=== PATIENT | female | born 1965 | race Caucasian/White ===

== ENCOUNTER 2019-08-03 23:36 | Inpatient (IN) | payer MEDICAID ==
[~2019-08-03] VITALS: Ht 175.3 cm; Wt 65.9 kg
[2019-08-03 23:45] VITALS: BP 104/70
[2019-08-03] MEDS ORDERED: PRINIVIL20 MG PO (23:55)
[2019-08-04] VITALS: BP 103/72
[2019-08-04 00:45] VITALS: BP 96/70
[2019-08-04 01:45] VITALS: BP 102/66
[2019-08-04 03:27] VITALS: BMI 21.4
--- NOTE | 2019-08-04 07:37 | NUR ---
ASSESSMENT DONE. DENIES NEEDS
[2019-08-04 08:25] LABS: BASOPHILS 0.2 % (0-2); EOSINOPHILS 2.3 % (0-7); HEMOGLOBIN 14.5 g/dL (12-16); IMMATURE GRANULOCYTES 0.2 % (0-5); LYMPHOCYTES 24.9 % (15-50); MCH 33.3 pg (26.0-34.0); MCV 101.1 fL (80.0-100.0); MEAN PLATELET VOLUME 10.3 fL (7.4-10.4); MONOCYTES 7.8 % (2-11); NEUTROPHILS 64.6 % (40-80); PLATELET COUNT 167 10x3/uL (130-400); RBC 4.35 10x6/uL (4.00-5.40); RDW 12.9 % (11.5-14.5); WBC 5.7 10x3/uL (4.8-10.8)
[2019-08-04 08:49] LABS: CALC OSMOLALITY 279 mosm/kg (275-300); CALCIUM 9.2 mg/dL (8.5-10.1); CARBON DIOXIDE 27.8 mmol/L (21.0-32.0); CHLORIDE - SERUM 105 mmol/L (98-107); CKMB 1.3 U/L (0.0-3.6); CREATINE KINASE 131 UL (21-215); CREATININE - SERUM 0.8 mg/dL (0.6-1.3); GLUCOSE 97 mg/dL (74-106); MAGNESIUM - SERUM 2.1 mg/dL (1.8-2.4); PHOSPHOROUS 3.8 mg/dL (2.5-4.9); POTASSIUM - SERUM 3.8 mmol/L (3.5-5.1); SODIUM 141 mmol/L (136-145); TROPONIN-I 0.058 ng/mL (0.000-0.060); UREA NITROGEN 10 mg/dL (7-18); eGFR NON AFRICAN AMERICAN 79 mL/min (90-120)
[2019-08-04 09:32] VITALS: BP 155/93
--- NOTE | 2019-08-04 10:06 | NUR ---
I have reviewed this patient and I concur with the Shift Assessment completed by the Licensed Practical Nurse today this shift.
[2019-08-04 13:39] VITALS: BP 154/94
[2019-08-04 15:04] LABS: CREATINE KINASE 115 UL (21-215); TROPONIN-I 0.017 ng/mL (0.000-0.060)
[2019-08-04 15:49] VITALS: Ht 175.3 cm; Wt 65.9 kg
[2019-08-04 16:00] VITALS: BP 156/104
--- NOTE | 2019-08-04 16:46 | NUR ---
WITHOUT CHANGES OR DISTRESS NOTED AT THIS TIME. DENIES NEEDS
--- NOTE | 2019-08-04 18:33 | NUR ---
DC GIVEN TO PT
--- NOTE | 2019-08-04 19:00 | NUR ---
REPORT RECEIVED, WILL CONTINUE POC. PATIENT IS AAOX4, SITTING UP AT BEDSIDE. NO S/S OF DISTRESS OBSERVED, RR EVEN AND UNLABORED ON ROOM AIR. PATIENT IS PREPARING FOR DC. IV OUT, BELONGINGS PACKED. JUST AWAITING TRANSPORTATION.
--- NOTE | 2019-08-07 08:56 | EC ---
PATIENT:CHAN MILLER DATE OF SERVICE: 08/04/19 SEX: F MEDICAL RECORD: [id number] DATE OF : 63 LOCATION:D.M2 D.212 AGE OF PATIENT: 53 ADMISSION DATE: 08/04/19 REFERRING PHYSICIAN: INTERPRETING PHYSICIAN: BRAVO CAGE MD ECHOCARDIOGRAM REPORT ECHO CHARGES 4 ECHO COMPLETE Date: 08/04/19 CLINICAL DIAGNOSIS: SYNCOPE, ELEVATED TROPONIN ECHOCARDIOGRAPHIC MEASUREMENTS (adult normal given) AC root (d.<3.7cm) 2.7 cm LV Septum d (<1.2 cm> 1.0 cm Valve Excursion 1.8 cm LV Septum (systole) 1.5 cm Left Atria (s.<4.0cm> 2.8 cm LVPW d(<1.2cm) 1.2 cm RV (d.<2.3cm) 2.7 cm LVPW (sytole) 1.3 cm LV diastole(<5.6CM) 5.0 cm MV E-F(>70mm/sec) cm LV systole 3.8 cm LVOT Diameter 1.6 cm MV exc.(>10mm) cm Est.ejection fraction (50-75%) % DOPPLER: LVIT cm/sec A 71 cm/sec E 56 cm/sec LA cm/sec RVSP 23.9 mmHg LVOT 92 cm/sec AOP1/2T m/s Asc. Ao 114 cm/sec RVOT 45 cm/sec RA cm/sec PA 69 cm/sec AV Gradient Peak 5.2 mmHg AV Mean 2.6 mmHg AV Area 1.6 cm MV Gradient Peak 4.6 mmHg MV Mean 1.5 mmHg MV Area cm COMMENTS: Insulation Mechanic: Olesya RODRIGUEZ Pony Ride Operator: 3 Dr. Silver TAPE# PACS Pericardial Effusion N DATE OF SERVICE: Adequate 2D, color flow imaging, spectral Doppler, and M-Mode. No LVH. LV internal dimension is normal. Wall motion is normal. EF is greater than or equal to 55%. Aortic valve is tricuspid. No evidence of stenosis by Doppler interrogation. Left atrium normal at 2.8 cm. Mitral valve shows no prolapse. Trace MR. Right-sided chambers are grossly normal. Trace TR. TRANSINT:[id number] Voice Confirmation ID: [id number] DOCUMENT ID: [id number] ECHOCARDIOGRAM REPORT [id number] MILLERCHAN LABOY,BRAVO Sloan MD at 0856 CC: [id number] DICTATION DATE: 08/04/19 150 [employer] CONSULTANT: [id number] DIS IN 08/04/19 [facility] [address] [place] [address]
== END 2019-08-04 21:14 | disposition home or self-care (01) | DRG 312 ==
LOC: D.ER 23:36 → D.M2 23:52 → OBSVTIME 23:52 → D.M2 23:52
PROVIDERS: ADMIT Family Medicine; ATTEND Family Medicine
DX: R55 Syncope and collapse (principal); S06.0X9A Concussion with loss of consciousness of unspecified duration, initial encounter; F17.203 Nicotine dependence unspecified, with withdrawal; S00.03XA Contusion of scalp, initial encounter; W19.XXXA Unspecified fall, initial encounter; I10 Essential (primary) hypertension; I95.9 Hypotension, unspecified